=== PATIENT | female | born 1950 | race Caucasian/White ===

== ENCOUNTER 2025-05-03 11:59 | Emergency (ER) | payer BC, OTHER ==
[~2025-05-03] VITALS: Ht 162.6 cm; Wt 71.2 kg
[~2025-05-03 11:59] MED LIST: AMLO1TAB23 PO; FOLI-119 PO; GABA-1250 PO; OMEP5TAB PO; [UNRECOGNIZED DRUG - OTHER] PO
--- NOTE | 2025-05-03 13:02 | ED.PDOC ---
Back pain HPI HPI Comments 75y F who presents to the ED for chief complaint of body pain. Pt states she has been having generalized body aches and pains intermittently since July 2024. Pt states she has history of shingles and states it feels like post-herpetic neuralgia. Pt states the pain is located by her lower back and across the R side of her chest. Pt otherwise states she has been taking gabapentin for her pains. Pt otherwise denies any chest pains, shortness of breath or other symptoms. Pt has noted BP of 154/75 with otherwise stable vitals. Chief Complaint: Body Pain Time Seen by MD: 12:45 Primary Care Provider: MARY LOU Trinidad Notes: Medications, Allergies Allergies: Coded Allergies: Iodine (Verified Allergy, 10/30/12) Home Meds Reported Medications Amlodipine Besylate (Amlodipine Besylate) 10 Mg Tab, 10 MG PO OD 10/30/12 [Methotraxate] No Conflict Check, 2.5 MG PO OD 10/30/12 Folic Acid (Folic Acid) 1 Mg Tab, 1 MG PO OD 10/30/12 Omeprazole (Tgt Omeprazole) 20 Mg Tab, 20 MG PO OD 10/30/12 Gabapentin (Gabapentin) 300 Mg Cap, 300 MG PO HS 10/30/12 Information Source: Patient Mode of Arrival: Ambulatory Brought in by: self Past Medical History PAST MEDICAL HISTORY: Cancer, CKF Surgical History (Other): R leg surgery 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 Family History Family History: Reviewed,noncontributory to illness Social History Smoker: Non-Smoker Alcohol: Denies ETOH Use Drugs: Denies Drug Use Lives In: Home Constitutional: reports: others (generalized body aches and pains); denies: chills, diaphoresis, fatigue, fever, malaise, sweats, weakness EENTM: denies: blurred vision, double vision, ear bleeding, ear discharge, ear drainage, ear pain, ear ringing, eye pain, eye redness, hearing loss, mouth pain, mouth swelling, nasal discharge, nose bleeding, nose congestion, nose pain, photophobia, tearing, throat pain, throat swelling, voice changes, others Respiratory: denies: cough, hemoptysis, orthopnea, SOB at rest, shortness of breath, SOB with excertion, stridor, wheezing, others Cardiovascular: denies: chest pain, dizzy spells, diaphoresis, Dyspnea on exertion, edema, irregular heart beat, left arm pain, lightheadedness, pa lpitations, PND, syncope, others Gastrointestinal: denies: abdomen distended, abdominal pain, blood streaked bowels, constipated, diarrhea, dysphagia, difficulty swallowing, hematemesis, melena, nausea, poor appetite, poor fluid intake, rectal bleeding, rectal pain, vomiting, others Genitourinary: denies: abnormal vagina bleeding, burning, dyspareunia, dysuria, flank pain, frequency, hematuria, incontinence, pain, , vagina discharge, urgency, others Neurological: denies: dizziness, fainting, headache, left sided numbness, left sided weakness, numbness, paresthesia, pre-existing deficit, right sided numbness, right sided weakness, seizure, speech problems, tingling, tremors, weakness, others Musculoskeletal: denies: back pain, gout, joint pain, joint swelling, muscle pain, muscle stiffness, neck pain, others Integumetry: denies: bruises, change in color, change in hair/nails, dryness, laceration, lesions, lumps, rash, wounds, others Allergic/Immunocompromised: denies: Difficulty Healing, Frequent Infections, Hives, Itching, others Hematologic/Lymphatic: denies: anemia, blood clots, easy bleeding, easy bruising, swollen glands, others Endocrine: denies: excessive hunger, excessive sweating, excessive thirst, excessive urination, flushing, intolerance to cold, intolerance to heat, unexplained weight gain, unexplained weight loss, others Psychiatric: denies: anxiety, bipolar disorder, depression, hopeless, panic disorder, schizophrenia, sleepless, suicidal, others All Other Systems: Reviewed and Negative Physical Exam General Appearance: Moderate Distress HEENT: Normal ENT Inspection, PERRL/EOMI Neck: Full Range of Motion, Non-Tender, Normal, Normal Inspection Respiratory: Chest Non-Tender, Lungs Clear, No Accessory Muscle Use, No Respiratory Distress, Normal Breath Sounds Cardiovascular: No Edema, No JVD, No Murmur, No Gallop, Normal Peripheral Pulses, Regular Rate/Rhythm Breast Exam: Normal Gastrointestinal: No Organomegaly, Non Tender, No Pulsatile Mass, Normal Bowel Sounds, Soft Genitalia: Deferred Pelvic: Deferred Rectal: Deferred Extremities: No calf tenderness, Normal capillary refill, Normal inspection, Normal range of motion, Non-tender, No pedal edema Musculoskeletal : Location: Bilateral Extremity Location: Arm, Back, Chest, Elbow, Shoulder Apperance: Limited ROM, Tenderness: Mild, NOT DONE (Patient with a chronic pain syndrome and possible post herpetic neuralgia) Neurologic: Alert, guitar maker II-XII nml as Tested, No Motor Deficits, Normal Affect, Normal Mood, No Sensory Deficits Cerebellar Function: Normal Reflexes: Normal Skin: Dry, Normal Color, Warm Peripheral Pulses: 1+ carotid (R), 1+ carotid (L) Lymphatic: No Adenopathy Was a procedure done? Was a procedure done?: No Back Pain Differential Dx Differential Diagnosis: DJD, Musculoskeletal Pain, Strain Other Differential Diagnosis muscles ache, muscle strain, chronic pain syndrome post herpetic neuralgia X-Ray, Labs, Meds, VS Vital Signs Date Time Temp Pulse Resp B/P (MAP) Pulse Ox O2 Delivery O2 Flow Rate FiO2 05/03/25 12:11 92 05/03/25 12:02 98.5 104 16 154/75 98 98.5 Lab Test 05/03/25 13:07 Range/Units White Blood Count 6.6 4.4-10.8 10^3/uL Red Blood Count 4.20 4.0-5.20 10^6/uL Hemoglobin 12.2 12.2-16.2 g/dL Hematocrit 37.1 36.0-46.0 % Mean Corpuscular Volume 88.3 80.0-100.0 fL Mean Corpuscular Hemoglobin 29.0 28.0-32.0 pg Mean Corpuscular Hemoglobin Concent 32.9 32.0-36.0 g/dL Red Cell Distribution Width 15.3 H 11.8-14.3 % Platelet Count 141 140-450 10^3/uL Mean Platelet Volume 9.8 6.9-10.8 fL Neutrophils (%) (Auto) 44.7 37.0-80.0 % Lymphocytes (%) (Auto) 44.5 10.0-50.0 % Monocytes (%) (Auto) 8.2 0.0-12.0 % Eosinophils (%) (Auto) 1.5 0.0-7.0 % Basophils (%) (Auto) 1.1 0.0-2.0 % Neutrophils # (Auto) 2.9 1.6-8.6 10 ^3/uL Lymphocytes # (Auto) 2.9 0.4-5.4 10 ^3/uL Monocytes # (Auto) 0.5 0-1.3 10 ^3/uL Eosinophils # (Auto) 0.1 0-0.8 10 ^3/uL Basophils # (Auto) 0.1 0-0.2 10 ^3/uL Nucleated Red Blood Cells 0.1 % Sodium Level 142 136-145 mmol/L Potassium Level 4.0 3.5-5.1 mmol/L Chloride Level 109 H 98-107 mmol/L Carbon Dioxide Level 22 20-31 mmol/L Anion Gap 11 5-15 Blood Urea Nitrogen 12 9-23 mg/dL Creatinine 1.04 H 0.550-1.02 mg/dL Glomerular Filtration Rate Calc 55 >90 mL/min BUN/Creatinine Ratio 11.5 10.0-20.0 Serum Glucose 92 74-106 mg/dL Calcium Level 9.6 8.7-10.4 mg/dL Magnesium Level 2.2 1.6-2.6 mg/dL Total Bilirubin 0.3 0.2-1.0 mg/dL Aspartate Amino Transferase (AST) 38 13-40 U/L Alanine Aminotransferase (ALT) 27 7-40 U/L Alkaline Phosphatase 93 46-116 U/L Troponin I High Sensitivity 15 </=34 ng/L Total Protein 7.3 5.7-8.2 g/dL Albumin 4.4 3.2-4.8 g/dL Current Medications Medications (Trade) Dose Ordered Sig/Eagle Route Start Time Stop Time Status Last Admin Acetaminophen/ Hydrocodone Bitart ([place] 5/325MG Tab) 1 tab ONCE ONCE PO 05/03/25 12:45 05/03/25 12:46 DC 05/03/25 13:[address] [address] Ph: [phone] DIAGNOSTIC IMAGING Diagnostic Imaging Report : [id number] Signed PATIENT: IFEOMA MEDINA ACCT: [id number] UNIT: [id number] : 1950 LOC: ER ROOM / BED: / AGE / SEX: 75 / F ADM STATUS: REG ER SERVICE [id number] ORDERING PHYSICIAN: MELANY CABRERA MD PROCEDURE(s): CXR2 - CHEST TWO VIEWS ROUTINE REASON: cp[ ORDER NUMBER(s): [id number], ACCESSION NUMBER(s): [id number] CHEST TWO VIEWS ROUTINE CLINICAL HISTORY: cp[ COMPARISON: None TECHNIQUE: Frontal and lateral view of the chest was obtained FINDINGS: Lines and Tubes: None Lungs: No focal consolidation. Pleura: No effusion. No pneumothorax. Cardiomediastinal contours: Unremarkable Bones: No acute osseous abnormality. IMPRESSION: No acute cardiopulmonary disease. ATED BY: NEEMA SNYDER DO DICTATED DATE/TIME: 05/03/251307 SIGNED BY: NEEMA SNYDER DO SIGNED DATE/TIME: 05/03/251307 CC: X-Ray, Labs, Meds, VS Comment Course in the emergency department eventful patient came in complaining of body ache mostly the left side in the back and the right side the shoulder and arms the patient had multiple time herpes zoster and since then in his been complaining of pain everywhere The blood pressure is 154/75 The chest x-ray is normal EKG is pending CBC normal CMP GFR is 57 five Troponin 15 Magnesium 2.2 Patient will be discharged home to follow up with her PCP Time of 1ST Reevaluation: 13:15 Reevaluation 1ST: Unchanged Patient Education/Counseling: Diagnosis, Treatment Family Education/Counseling: No Family Present SEPSIS Sepsis Screen Date sepsis recognized/suspect: May 03, 2025 Time Sepsis recognized/suspect: 1202 Recent Procedure: No On Antibiotic Therapy: No Respiratory Rate >20: No Heart Rate >90: Yes Temp<36 C (96.8 F) or >38.3 C: No SBP <90 or MAP <65 mmHG: No New Acute Mental Status Change: No Is the patient on CPAP, BIPAP,: No Physician Orders Electrocardigram (05/03/25 12:22) Urinalysis (05/03/25 12:35) Chest Two Views Routine (05/03/25 12:35) Heplock Iv (05/03/25 12:35) Fitness Assistant (05/03/25 12:35) Blood Pressure (05/03/25 12:35) Vital Signs Date Time Temp Pulse Resp B/P (MAP) Pulse Ox O2 Delivery O2 Flow Rate FiO2 05/03/25 12:11 92 05/03/25 12:02 98.5 104 16 154/75 98 98.5 Laboratory Tests Test 05/03/25 13:07 White Blood Count 6.6 10^3/uL (4.4-10.8) Medications Medications Dose Ordered Sig/Eagle Route Start Time Stop Time Status Last Admin Dose Admin Acetaminophen/ Hydrocodone Bitart 1 tab ONCE ONCE PO 05/03/25 12:45 05/03/25 12:46 DC 05/03/25 13:05 Departure 1 Departure Time of Disposition: 14:38 Impression: Primary Impression: Chronic pain syndrome Additional Impression: Post herpetic neuralgia Disposition: 01 HOME / SELF CARE / HOMELESS Condition: Fair Additional Instructions: Local heat and follow up with your PCP e-Prescriptions Hydrocodone-Acetaminophen (Hydrocodone Bitartrate/AC 5-325 mg) 1 Tab Tab 1 TAB PO BID for 10 Days, #20 TAB Prov: MELANY CABRERA MD 05/03/25 Discharged With: Self Critical Care Note Critical Care Time?: No Stability Stability form required: No Heart Score Heart Score: Heart Score Response (Comments) Value History N/A 0 EKG N/A 0 Age >65 2 Risk Factors 1 or 2 risk factors 1 Troponin N/A 0 Total 3 I personally scribed for MELANY CABRERA MD ([email or web address]) on 05/03/25 at 13:02. Electronically submitted by Josefina Jeffery ([email or web address]). I personally scribed for MELANY CABRERA MD ([email or web address]) on 05/03/25 at 13:14. Electronically submitted by Josefina Jeffery ([email or web address]). MELANY CABRERA MD May 03, 2025 13:02
[2025-05-03] MEDS: HYDROcodone-ACET 5/325MG TAB PO ONE (13:05)
--- NOTE | 2025-05-03 13:11 | DVH ---
XY CHEST TWO VIEWS ROUTINE CLINICAL HISTORY: cp[ COMPARISON: None TECHNIQUE: Frontal and lateral view of the chest was obtained FINDINGS: Lines and Tubes: None Lungs: No focal consolidation. Pleura: No effusion. No pneumothorax. Cardiomediastinal contours: Unremarkable Bones: No acute osseous abnormality. IMPRESSION: No acute cardiopulmonary disease.
[2025-05-03 13:36] LABS: Hematocrit 37.1 % (36.0-46.0); Hemoglobin 12.2 g/dL (12.2-16.2); Mean Corpuscular Hemoglobin 29.0 pg (28.0-32.0); Mean Corpuscular Volume 88.3 fL (80.0-100.0); Nucleated Red Blood Cells % 0.1 %
[2025-05-03 13:50] LABS: Alanine Aminotransferase 27 U/L (7-40); Albumin 4.4 g/dL (3.2-4.8); Alkaline Phosphatase 93 U/L (46-116); Anion Gap 11 (5-15); BUN/Creatinine Ratio 11.5 (10.0-20.0); Blood Urea Nitrogen 12 mg/dL (9-23); Calcium 9.6 mg/dL (8.7-10.4); Carbon Dioxide 22 mmol/L (20-31); Glucose 92 mg/dL (74-106); Magnesium 2.2 mg/dL (1.6-2.6); Potassium 4.0 mmol/L (3.5-5.1); Sodium 142 mmol/L (136-145); Total Protein 7.3 g/dL (5.7-8.2)
[2025-05-03 13:51] LABS: Bilirubin, Total 0.3 mg/dL (0.2-1.0)
[2025-05-03 13:52] LABS: Chloride 109 mmol/L (98-107)
[2025-05-03] MEDS ORDERED: HYDR-4902 PO (15:08)
[2025-05-03 15:30] VITALS: BP 139/76; PULSE 79; RESP 19; TEMP 98.4; O2SAT 96
--- NOTE | 2025-05-03 20:12 | ECG ---
[facility] Test Date: 2025-05-03 Test Time: 12:11:27 Pat Name: IFEOMA MEDINA Department: ED Room: Gender: F Operator Helper: riley : 1950 Requested By: MELANY CABRERA Order Number: [id number] Reading MD: Hesham Cabral Measurements Intervals [place] Rate: 92 P: 42 SD: 120 QRS: 16 QRSD: 80 T: 223 QT: 316 QTc: 391 Interpretive Statements Sinus rhythm Abnormal R-wave progression, early transition Nonspecific T abnormalities, diffuse leads Electronically Signed On 05-06-2025 18:40:33 PDT by Hesham Cabral Please click the below link to view image of tracing.
== END 2025-05-03 15:46 | disposition home or self-care (01) ==
LOC: ER 11:59
DX: G89.4 Chronic pain syndrome (principal); B02.29 Other postherpetic nervous system involvement; I50.9 Heart failure, unspecified; Z79.899 Other long term (current) drug therapy; Z86.19 Personal history of other infectious and parasitic diseases; Z88.8 Allergy status to other drugs, medicaments and biological substances
CPT/HCPCS: 36415; 71046; 80053; 83735; 84484; 85025; 93005